=== PATIENT | male | born 1960 | race Caucasian/White ===

== ENCOUNTER 2020-09-27 16:58 | Inpatient (IN) | payer MEDICARE, MEDICAID ==
[~2020-09-27] VITALS: Ht 175.2 cm; Wt 84.5 kg
[2020-09-27 17:14] VITALS: BP 161/89
[2020-09-27 17:26] LABS: BASO % 0.3 % (0.0-1.0); EOS # 0.1 10*3/uL (0.0-0.4); HEMATOCRIT 25.7 % (42.0-52.0); LYMPH # 0.6 10*3/uL (1.3-4.4); LYMPH % 17.9 % (27.0-41.0); MEAN PLATELET VOLUME 10.2 fl (9.6-12.3); MONO # 0.2 10*3/uL (0.1-1.0); MONO % 7.5 % (3.0-9.0); NEUT # 2.2 10*3/uL (2.3-7.9); PLATELET COUNT AUTOMATED 75 10*3/uL (130-400); RED BLOOD COUNT 2.57 10*6/uL (4.50-5.90); RED CELL DISTRI WIDTH 15.6 % (0-14.5); WHITE BLOOD COUNT 3.1 10*3/uL (4.8-10.8)
[2020-09-27 17:37] LABS: ACT PARTIAL THROMBO TIME 26.1 SECONDS (20.0-32.1)
[2020-09-27 17:38] LABS: BILIRUBIN Negative (Negative); BLOOD 1+ (Negative); CLARITY Clear (Clear); COLOR Yellow (Yellow); GLUCOSE Negative (Negative); KETONE Negative (Negative); LEUKO ESTERASE Negative (Negative); NITRITE Negative (Negative)
[2020-09-27 17:43] LABS: ALBUMIN 3.1 gm/dl (3.1-4.5); ALKALINE PHOSPHATASE 170 U/L (45-117); BUN 13 mg/dl (7-24); CHLORIDE 96 mmol/L (98-107); CPK 58 U/L (39-308); CREATININE 0.94 mg/dL (0.70-1.30); POTASSIUM 3.6 mmol/L (3.5-5.1); SGOT/AST 269 IU/L (3-35); SGPT/ALT 111 U/L (12-78); SODIUM 134 mmol/L (136-145); TOTAL PROTEIN 6.6 gm/dL (6.4-8.2)
[2020-09-27 17:44] LABS: ETHYL ALCOHOL < 3.0 mg/dl (<3); TROPONIN I < 0.015 ng/ml (<0.045)
[2020-09-27 17:47] LABS: URINE AMPHETAMINES < 1000 (1000ng/ml); URINE BARBITURATES < 200 (200ng/ml); URINE BENZODIAZEPINES < 200 (200ng/ml); URINE CANNABINOIDS (THC) < 50 (50ng/ml); URINE COCAINE < 300 (300ng/ml); URINE METHADONE < 300 (300ng/ml); URINE OPIATES < 300 (300ng/ml); URINE PHENCYCLIDINE < 25 (25ng/ml)
[2020-09-27 17:54] LABS: BACTERIA TRACE; EPITHELIAL CELLS 0-2
[2020-09-27 18:51] VITALS: BP 143/94
[2020-09-27 19:30] VITALS: BP 148/84
[2020-09-27] MEDS ORDERED: VITAMIN D250 MCG PO (20:32)
[2020-09-27] MEDS ORDERED: METFORMIN HCL1000 M1 PO (20:33)
[2020-09-27] MEDS ORDERED: LIPITOR40 MG PO (20:33)
[2020-09-27] MEDS ORDERED: COZAAR50 M1 PO (20:35)
[2020-09-27] MEDS ORDERED: MIRALAX17 GM PO (20:35)
[2020-09-27] MEDS ORDERED: LEVEMIR FL100 UNIT/1 SC (20:36)
[2020-09-27] MEDS ORDERED: NICODERM CQ1 EAC1 T (20:36)
[2020-09-27] MEDS ORDERED: ZOLOFT100 MG PO (20:37)
[2020-09-27] MEDS ORDERED: B-1100 M1 PO (20:37)
[2020-09-28] VITALS: BP 158/99
[2020-09-28 05:58] LABS: BASO % 0.6 % (0.0-1.0); EOS # 0.1 10*3/uL (0.0-0.4); HEMATOCRIT 27.6 % (42.0-52.0); LYMPH # 1.2 10*3/uL (1.3-4.4); LYMPH % 34.3 % (27.0-41.0); MEAN CELL VOLUME 102.2 fl (80.0-94.0); MEAN CORPUSCULAR HGB 35.6 pg (27.0-31.0); MEAN CORPUSCULAR HGB CONC 34.8 g/dl (33.0-37.0); MEAN PLATELET VOLUME 10.2 fl (9.6-12.3); MONO # 0.3 10*3/uL (0.1-1.0); MONO % 10.1 % (3.0-9.0); NEUT # 1.8 10*3/uL (2.3-7.9); NEUT % 51.7 % (47.0-73.0); PLATELET COUNT AUTOMATED 74 10*3/uL (130-400); RED CELL DISTRI WIDTH 15.9 % (0-14.5); WHITE BLOOD COUNT 3.4 10*3/uL (4.8-10.8)
[2020-09-28 06:20] LABS: ALBUMIN 3.2 gm/dl (3.1-4.5); ALKALINE PHOSPHATASE 161 U/L (45-117); BUN 10 mg/dl (7-24); CHLORIDE 101 mmol/L (98-107); CREATININE 0.96 mg/dL (0.70-1.30); POTASSIUM 3.2 mmol/L (3.5-5.1); SGOT/AST 194 IU/L (3-35); SGPT/ALT 95 U/L (12-78); SODIUM 137 mmol/L (136-145); TOTAL PROTEIN 6.4 gm/dL (6.4-8.2)
[2020-09-28 12:00] VITALS: BP 94/62
[2020-09-28 16:00] VITALS: BP 103/65
[2020-09-28 20:00] VITALS: BP 117/73
[2020-09-29] VITALS: BP 112/69
[2020-09-29 05:12] LABS: BASO % 0.3 % (0.0-1.0); EOS # 0.1 10*3/uL (0.0-0.4); EOS % 3.4 % (1.0-4.0); LYMPH # 1.2 10*3/uL (1.3-4.4); LYMPH % 35.2 % (27.0-41.0); MEAN CELL VOLUME 103.9 fl (80.0-94.0); MEAN CORPUSCULAR HGB 35.1 pg (27.0-31.0); MEAN CORPUSCULAR HGB CONC 33.8 g/dl (33.0-37.0); MEAN PLATELET VOLUME 11.1 fl (9.6-12.3); MONO # 0.4 10*3/uL (0.1-1.0); NEUT # 1.8 10*3/uL (2.3-7.9); NEUT % 50.5 % (47.0-73.0); NUCLEATED RED BLOOD CELL 0.6 % (0.0-0.0); PLATELET COUNT AUTOMATED 86 10*3/uL (130-400); RED BLOOD COUNT 2.31 10*6/uL (4.50-5.90); RED CELL DISTRI WIDTH 16.3 % (0-14.5); WHITE BLOOD COUNT 3.5 10*3/uL (4.8-10.8)
[2020-09-29 05:18] LABS: ALBUMIN 2.7 gm/dl (3.1-4.5); BUN 14 mg/dl (7-24); CHLORIDE 97 mmol/L (98-107); CREATININE 1.02 mg/dL (0.70-1.30); POTASSIUM 3.6 mmol/L (3.5-5.1); SGOT/AST 99 IU/L (3-35); SGPT/ALT 67 U/L (12-78); SODIUM 130 mmol/L (136-145); TOTAL PROTEIN 5.8 gm/dL (6.4-8.2)
[2020-09-29 05:19] LABS: ALKALINE PHOSPHATASE 159 U/L (45-117)
[2020-09-29 08:00] VITALS: BP 125/78
[2020-09-29 12:00] VITALS: BP 127/77
[2020-09-29 16:00] VITALS: BP 129/76
[2020-09-29 20:00] VITALS: BP 126/76
[2020-09-30] VITALS: BP 117/65
[2020-09-30 06:34] LABS: BASO % 0.3 % (0.0-1.0); EOS # 0.1 10*3/uL (0.0-0.4); EOS % 2.4 % (1.0-4.0); HEMATOCRIT 25.1 % (42.0-52.0); LYMPH # 1.3 10*3/uL (1.3-4.4); LYMPH % 35.3 % (27.0-41.0); MEAN CELL VOLUME 106.4 fl (80.0-94.0); MEAN CORPUSCULAR HGB 35.6 pg (27.0-31.0); MEAN CORPUSCULAR HGB CONC 33.5 g/dl (33.0-37.0); MEAN PLATELET VOLUME 10.9 fl (9.6-12.3); MONO # 0.5 10*3/uL (0.1-1.0); MONO % 14.2 % (3.0-9.0); NEUT # 1.8 10*3/uL (2.3-7.9); RED BLOOD COUNT 2.36 10*6/uL (4.50-5.90); RED CELL DISTRI WIDTH 17.4 % (0-14.5); WHITE BLOOD COUNT 3.8 10*3/uL (4.8-10.8)
[2020-09-30 06:44] LABS: BUN 12 mg/dl (7-24); CHLORIDE 105 mmol/L (98-107); CREATININE 1.02 mg/dL (0.70-1.30); PLATELET COUNT AUTOMATED 126 10*3/uL (130-400); POTASSIUM 4.1 mmol/L (3.5-5.1); SODIUM 136 mmol/L (136-145)
[2020-09-30 08:00] VITALS: BP 140/82
[2020-09-30 12:00] VITALS: BP 121/65
[2020-09-30 20:00] VITALS: BP 129/76
[2020-10-01] VITALS: BP 126/73
[2020-10-01 08:00] VITALS: BP 140/88
== END 2020-10-01 11:25 | disposition home or self-care (01) | DRG 897 ==
LOC: ED 16:58 → 5E 18:31 → EDHOLD 18:31 → 5E 18:44
PROVIDERS: Emergency Medicine; Internal Medicine; Student in an Organized Health Care Education/Training Program; ADMIT Family Medicine; ATTEND Family Medicine
DX: F10.239 Alcohol dependence with withdrawal, unspecified (principal); E87.1 Hypo-osmolality and hyponatremia; D61.818 Other pancytopenia; E44.0 Moderate protein-calorie malnutrition; D53.9 Nutritional anemia, unspecified; D72.819 Decreased white blood cell count, unspecified; E11.65 Type 2 diabetes mellitus with hyperglycemia; E83.42 Hypomagnesemia; F41.9 Anxiety disorder, unspecified; E87.8 Other disorders of electrolyte and fluid balance, not elsewhere classified; Z20.822 Contact with and (suspected) exposure to COVID-19; R74.01 Elevation of levels of liver transaminase levels; E80.6 Other disorders of bilirubin metabolism; I10 Essential (primary) hypertension; F17.210 Nicotine dependence, cigarettes, uncomplicated; Z71.6 Tobacco abuse counseling; Z79.4 Long term (current) use of insulin; Z88.1 Allergy status to other antibiotic agents